=== PATIENT | female | born 1945 | race Caucasian/White ===

== ENCOUNTER 2016-11-09 07:30 | Outpatient (RCR) | payer MEDICARE, BC ==
[2009-02-24 19:52] VITALS: BP 130/60
[2016-11-09] VITALS (9 sets, daily range): BP systolic 91–149; BP diastolic 42–78; PULSE 74–85; TEMP 97.6–98.4
[~2016-11-09] VITALS: Ht 160 cm; Wt 77.3 kg
[~2016-11-09 07:30] MED LIST: ACIDOPHILUS PO; ASPIR-LOW81 MG PO; ASPIRIN 32325 MG/TAB PO; ASPIRIN E.C. 8181 MG PO; BRILINTA90 MG PO; CARTIA XT240 MG PO; CELEXA40 MG PO; CLOBETASOL PROP0.055 TP; CLOTRIMAZOLE1% TP; COLACE 100100 MG/CAP PO; COLACE100 MG PO; CRESTOR20 MG PO; CYANOCOBAL1000 MCG/1 IM; DILAUDID 2MG TAB2 MG PO; DOMPERIDONE10 MG/CAP PO; EFFIENT10 MG PO; ENABLEX7.5 MG PO; FOLIC ACID 40400 MCG PO; FOLIC ACID1 MG PO; FORTAMET500 MG PO; GLIPIZIDE XL10 MG PO; GLUCOPHAGE1000 MG PO; IBUPROFEN800 MG PO; IMDUR 30MG30 MG/TAB; IMDUR30 MG PO; INTRATHECAL PUMP IT; ISOSORBIDE30 MG PO; LANTUS100 U/ML SQ; LASIX 20MG TABL20 MG PO; LASIX 40MG TABL40 MG PO; LEVAQUIN 5500 MG/TA1 PO; LEVEMIR SQ; LEVEMIR100 U/ML SQ; LEVOTHYROXIN0.088 MG PO; LEXAPRO20 MG PO; LISINOPRIL10 MG PO; LOPRESSOR PO; LORTAB 5/500 501 TAB PO; LOTRIMIN1% TP; MAG-OX 400400 MG/TAB PO; METFORMIN1000 MG PO; METOPROLOL SUCC25 M1 PO; METOPROLOL25 MG PO; NEURONTIN300 MG/CAP PO; NITROGLYCERIN0.4 MG SL; NITROSTAT0.4 MG/TAB SL; NORCO 325 MG-101 TAB PO; NORCO 325 MG-7.1 TAB PO; NORCO PO; NORVASC2.5 MG PO; NOVOLOG FLEX100 U/ML SQ; NOVOLOG100 U/ML SQ; PHENERGAN 25 TA25 MG PO; PLAVIX 75MG TAB75 MG PO; PRAVACHOL 40MG40 MG PO; PREVACID 15MG15 MG PO; PROTONIX 40MG T40 MG PO; PROTONIX40 MG PO; RANEXA 500MG T500 MG PO; SEE INSTRUCTIONS IT; SENOKOT S 50 MG1 TAB PO; SEPTRA DS 8001 TAB PO; SINGULAIR10 MG PO; SYNTHROID0.088 MG PO; SYNTHROID0.1 MG/TAB PO; TEMOVATE0.052 TP; THEO-DUR 2200 MG/TAB PO; TOPROL XL 25MG25 MG PO; TYLENOL 325MG325 MG PO; VALISONE 0.1% TP; VITAMIN D 50,1.25 MG PO; VITAMIN D5000 IU PO; VITAMIN E1000 U/CAP PO; VITAMIN E200 I1 PO; ZESTRIL2.5 MG PO; ZOCOR 20MG20 MG PO; ZOCOR40 MG PO; ZOFRAN 4MG T4 MG/TAB PO; [UNRECOGNIZED DRUG - OTHER]; novolog SQ
== END 2016-11-09 12:55 | disposition home or self-care (01) ==
LOC: EUO 07:30
DX: K92.2 Gastrointestinal hemorrhage, unspecified (principal); I25.10 Atherosclerotic heart disease of native coronary artery without angina pectoris; D64.89 Other specified anemias; Z45.2 Encounter for adjustment and management of vascular access device
CPT/HCPCS: J1644; J1940; J7050; P9016

== ENCOUNTER 2016-11-25 12:08 | Outpatient (RCR) | payer MEDICARE, BC ==
[2009-02-24 19:52] VITALS: BP 130/60
[2016-11-24 16:58] LABS: HEMATOCRIT 32.8 % (37.0-47.0); HEMOGLOBIN 10.8 g/dl (12.5-16.0)
[~2016-11-25] VITALS: Ht 160 cm; Wt 77.2 kg
[2016-11-25 12:19] VITALS: BP 97/37; PULSE 81; TEMP 98.3
[2016-11-25 12:34] VITALS: BP 103/51; PULSE 81; TEMP 98.1
[2016-11-25 13:04] VITALS: BP 102/51; PULSE 82; TEMP 98
[2016-11-25 14:04] VITALS: BP 126/65; PULSE 78; TEMP 98.1
== END 2017-02-23 | disposition home or self-care (01) ==
LOC: EUO
PROVIDERS: Internal Medicine
DX: I25.118 Atherosclerotic heart disease of native coronary artery with other forms of angina pectoris (principal); K31.811 Angiodysplasia of stomach and duodenum with bleeding; R07.9 Chest pain, unspecified; I10 Essential (primary) hypertension; Z45.2 Encounter for adjustment and management of vascular access device; Z95.1 Presence of aortocoronary bypass graft; Z87.891 Personal history of nicotine dependence
CPT/HCPCS: J1644; J7050; P9016

== ENCOUNTER 2017-06-23 09:34 | Outpatient (RCR) | payer MEDICARE, BC ==
[2009-02-24 19:52] VITALS: BP 130/60
[2017-06-23] VITALS (9 sets, daily range): BP systolic 101–159; BP diastolic 60–95; PULSE 68–77; TEMP 98.1–99
[2017-06-23] MEDS ORDERED: RANEXA1000 MG PO (11:12)
== END 2017-06-23 18:36 | disposition home or self-care (01) ==
LOC: EUO 09:34
DX: I25.709 Atherosclerosis of coronary artery bypass graft(s), unspecified, with unspecified angina pectoris (principal); K31.811 Angiodysplasia of stomach and duodenum with bleeding
CPT/HCPCS: J1644; J1940; J7050; P9016

== ENCOUNTER 2018-05-06 09:30 | Outpatient (RCR) | payer MEDICARE, BC ==
[2009-02-24 19:52] VITALS: BP 130/60
[2018-05-06] VITALS (11 sets, daily range): BP systolic 115–130; BP diastolic 57–87; PULSE 69–84; TEMP 97.3–98.3
[~2018-05-06 09:30] MED LIST changes: +RANEXA1000 MG PO
== END 2018-05-06 18:00 | disposition home or self-care (01) ==
LOC: EUO 09:30
DX: D64.89 Other specified anemias (principal); I25.9 Chronic ischemic heart disease, unspecified
CPT/HCPCS: J1644; J1940; J7050; P9016

== ENCOUNTER 2018-05-26 00:57 | Inpatient (IN) | payer MEDICARE, BC ==
[~2018-05-26] VITALS: Ht 160 cm; Wt 89.6 kg
[2018-05-26] MEDS ORDERED: LIPITOR 80MG80 MG PO (01:31)
[2018-05-26] MEDS ORDERED: CELEXA40 MG PO (01:31)
[2018-05-26 01:59] LABS: BASO % 0.4 % (0.0-2.0); EOS # 0.3 (0.0-0.7); EOS % 3.6 % (0-4.0); GRAN # 5.6 (1.4-6.5); GRAN % 71.3 % (42.2-75.2); HEMOGLOBIN 10.7 g/dl (12.5-16.0); LYMPH # 1.2 (1.2-3.4); LYMPH % 15.6 % (20.0-51.0); MEAN CELL VOLUME 88 fl (80.0-100.0); MEAN CORPUSCULAR HEMOGLOBIN 29 pg (27.0-31.0); MEAN CORPUSCULAR HGB CONC 32 g/dl (33.0-37.0); MEAN PLATELET VOLUME 9.6 fl (7.4-10.4); MONO # 0.7 (0.1-0.6); MONO % 8.8 % (1.7-9.3); PLATELET COUNT 222 K/mm3 (130-400); RED BLOOD COUNT 3.76 M/mm3 (4.10-5.30)
[2018-05-26 02:06] LABS: PROTHROMBIN TIME 11.6 SECONDS (9.7-12.8)
[2018-05-26 02:11] LABS: ALANINE AMINOTRANSFERASE 38 U/L (9-52); ALBUMIN 3.8 gm/dL (3.5-5.0); ALKALINE PHOSPHATASE 80 U/L (50-136); ANION GAP 9 mmol/L (7-16); AST,SGOT 30 U/L (15-37); BILIRUBIN,TOTAL 0.3 mg/dL (0.0-1.0); BLOOD UREA NITROGEN 18 mg/dL (7-17); CALCIUM 8.9 mg/dL (8.4-10.2); CARBON DIOXIDE 30 mmol/L (22-30); CHLORIDE 99 mmol/L (98-107); CREATININE, serum 1.13 mg/dL (0.52-1.25); GLUCOSE 160 mg/dL (74-106); POTASSIUM 4.3 mmol/L (3.4-5.0); SODIUM 138 mmol/L (137-145); TOTAL PROTEIN 6.6 gm/dL (6.4-8.2)
[2018-05-26 02:23] LABS: TROPONIN-I < 0.012 ng/mL (0.000-0.034)
[2018-05-26] MEDS ORDERED: PHENERGAN 25 TA25 MG PO (03:01)
[2018-05-26] MEDS ORDERED: MUCINEX 60600 MG/TA1 PO (03:01)
[2018-05-26 05:27] LABS: MUCOUS Present /lpf; PH 5 (5-8); SQUAMOUS EPITHELIAL 0-2 /hpf; URINE APPEARANCE Clear; URINE BACTERIA None Seen /hpf; URINE BILIRUBIN Negative (NEGATIVE); URINE BLOOD Negative (NEGATIVE); URINE COLOR Amber; URINE GLUCOSE Negative (NEGATIVE); URINE KETONE Negative (NEGATIVE); URINE LEUKOCYTE ESTERASE Negative (NEGATIVE); URINE NITRATE Negative (NEGATIVE); URINE PROTEIN(semi-quant) Negative (NEGATIVE); URINE RBC 0-2 /hpf; URINE UROBILINOGEN Negative (NEGATIVE)
[2018-05-26 05:49] LABS: COLLECTION METHOD CLEAN CATCH
[2018-05-26 08:14] VITALS: BP 109/65; PULSE 87; TEMP 98.1
[2018-05-26] MEDS ORDERED: GLUCOPHAGE1000 MG PO (10:41)
[2018-05-26 12:26] VITALS: BP 110/66; PULSE 80; TEMP 98.4
[2018-05-26 15:49] VITALS: BP 102/57; PULSE 70; TEMP 98.2
[2018-05-26 20:28] VITALS: BP 113/70; PULSE 83; TEMP 97.8
[2018-05-27 00:35] VITALS: BP 106/62; PULSE 70; TEMP 98.2
[2018-05-27 07:06] LABS: BASO % 0.2 % (0.0-2.0); EOS # 0.3 (0.0-0.7); EOS % 3.9 % (0-4.0); GRAN # 5.8 (1.4-6.5); GRAN % 68.4 % (42.2-75.2); HEMOGLOBIN 10.2 g/dl (12.5-16.0); LYMPH # 1.4 (1.2-3.4); MEAN CELL VOLUME 91 fl (80.0-100.0); MEAN CORPUSCULAR HEMOGLOBIN 29 pg (27.0-31.0); MEAN CORPUSCULAR HGB CONC 32 g/dl (33.0-37.0); MEAN PLATELET VOLUME 10.4 fl (7.4-10.4); MONO # 0.9 (0.1-0.6); MONO % 11.1 % (1.7-9.3); PLATELET COUNT 232 K/mm3 (130-400); RED BLOOD COUNT 3.58 M/mm3 (4.10-5.30); REDCELL DISTRIBUTION WIDTH-CV 14.5 % (11.5-14.5)
[2018-05-27 07:22] LABS: CREATININE, serum 2.05 mg/dL (0.52-1.25); POTASSIUM 4.5 mmol/L (3.4-5.0)
[2018-05-27 07:27] LABS: HEMATOCRIT 32.4 % (37.0-47.0)
[2018-05-27 08:23] VITALS: BP 109/63; BP 112/77; PULSE 100; PULSE 78; TEMP 98.4
[2018-05-27 12:41] VITALS: BP 117/73; PULSE 80; TEMP 98.6
[2018-05-27 16:23] VITALS: BP 111/89; PULSE 85; TEMP 98.4
[2018-05-27 19:44] VITALS: BP 108/91; PULSE 91; TEMP 98.1
[2018-05-28] VITALS (7 sets, daily range): BP systolic 102–143; BP diastolic 55–87; PULSE 67–96; TEMP 98–98.5
[2018-05-28 07:16] LABS: CALCIUM 8.9 mg/dL (8.4-10.2); CREATININE, serum 1.39 mg/dL (0.52-1.25); MAGNESIUM 1.4 mg/dL (1.6-2.3); POTASSIUM 4.4 mmol/L (3.4-5.0)
[2018-05-29 04:27] VITALS: BP 123/57; PULSE 81; TEMP 98.1
[2018-05-29 07:15] VITALS: BP 97/57; PULSE 69; TEMP 97.8
[2018-05-29 07:37] LABS: CALCIUM 9.2 mg/dL (8.4-10.2); CREATININE, serum 1.11 mg/dL (0.52-1.25); MAGNESIUM 2.1 mg/dL (1.6-2.3); POTASSIUM 4.1 mmol/L (3.4-5.0)
[2018-05-29] MEDS ORDERED: OMNICEF 300MG300 MG PO (09:42)
[2018-05-29] MEDS ORDERED: IPRATROPIUM BROM3 M1 IH ×2 (09:45→09:46)
[2018-05-29] MEDS ORDERED: TYLENOL 325MG325 MG PO (09:47)
[2018-05-29] MEDS ORDERED: NEURONTIN300 MG/CAP PO (09:47)
[2018-05-29] MEDS ORDERED: NORCO 325 MG-51 TAB PO (09:48)
[2018-05-29] MEDS ORDERED: PREDNISONE20 MG PO (09:53)
[2018-05-29 11:19] VITALS: BP 143/64; PULSE 86; TEMP 99
[2018-05-29 13:56] VITALS: BP 143/64; PULSE 86; TEMP 99
== END 2018-05-29 15:26 | DRG 555 ==
LOC: COL.ER 00:57 → MEDICAL 06:04
PROVIDERS: Emergency Medicine; Internal Medicine; Physician Assistant
DX: M79.652 Pain in left thigh (principal); J18.9 Pneumonia, unspecified organism; K86.1 Other chronic pancreatitis; F11.20 Opioid dependence, uncomplicated; N17.9 Acute kidney failure, unspecified; G89.29 Other chronic pain; D86.0 Sarcoidosis of lung; I25.10 Atherosclerotic heart disease of native coronary artery without angina pectoris; I10 Essential (primary) hypertension; E11.9 Type 2 diabetes mellitus without complications; Z95.5 Presence of coronary angioplasty implant and graft; Z87.891 Personal history of nicotine dependence; D50.0 Iron deficiency anemia secondary to blood loss (chronic); Z79.4 Long term (current) use of insulin
CPT/HCPCS: 99222-AI; 99232-AI; 99233-AI; 99239; A9284; G8978-GP; G8979-GP; G8987-GO; G8988-GO; J0696; J1170; J1644; J1650; J1815; J2405; J2550; J3475; J7030; J7512; Q9967

== ENCOUNTER 2018-07-12 11:00 | Outpatient (RCR) | payer MEDICARE, BC ==
[2009-02-24 19:52] VITALS: BP 130/60
[~2018-07-12] VITALS: Ht 160 cm; Wt 87.0 kg
[2018-07-12] VITALS (9 sets, daily range): BP systolic 109–151; BP diastolic 35–90; PULSE 78–93; TEMP 98–98.7
[~2018-07-12 11:00] MED LIST changes: +IPRATROPIUM BROM3 M1 IH; +LIPITOR 80MG80 MG PO; +MUCINEX 60600 MG/TA1 PO; +NORCO 325 MG-51 TAB PO; +OMNICEF 300MG300 MG PO; +PREDNISONE20 MG PO
== END 2018-07-12 16:47 | disposition home or self-care (01) ==
LOC: EUO 11:00
DX: D50.0 Iron deficiency anemia secondary to blood loss (chronic) (principal); K31.811 Angiodysplasia of stomach and duodenum with bleeding; Z45.2 Encounter for adjustment and management of vascular access device; Z95.828 Presence of other vascular implants and grafts
CPT/HCPCS: J1644; J1940; J7050; P9016

== ENCOUNTER 2018-08-01 13:15 | Emergency (ER) | payer MEDICARE, BC ==
[2009-02-24 19:52] VITALS: BP 130/60
[~2018-08-01] VITALS: Ht 160 cm; Wt 90.0 kg
[2018-08-01 13:16] VITALS: TEMP 98.2
[2018-08-01 14:25] LABS: BASO % 0.5 % (0.0-2.0); EOS # 0.2 (0.0-0.7); EOS % 3.7 % (0-4.0); GRAN # 4.1 (1.4-6.5); LYMPH # 1.5 (1.2-3.4); LYMPH % 22.9 % (20.0-51.0); MEAN CELL VOLUME 88 fl (80.0-100.0); MEAN CORPUSCULAR HGB CONC 33 g/dl (33.0-37.0); MEAN PLATELET VOLUME 9.8 fl (7.4-10.4); MONO # 0.7 (0.1-0.6); MONO % 10.4 % (1.7-9.3); PLATELET COUNT 217 K/mm3 (130-400); RED BLOOD COUNT 3.38 M/mm3 (4.10-5.30)
[2018-08-01 14:27] LABS: HEMATOCRIT 29.6 % (37.0-47.0); HEMOGLOBIN 9.7 g/dl (12.5-16.0); MEAN CORPUSCULAR HEMOGLOBIN 29 pg (27.0-31.0)
[2018-08-01 14:38] LABS: ALANINE AMINOTRANSFERASE 32 U/L (9-52); ALBUMIN 3.5 gm/dL (3.5-5.0); ALKALINE PHOSPHATASE 61 U/L (50-136); ANION GAP 5 mmol/L (7-16); AST,SGOT 35 U/L (15-37); BILIRUBIN,TOTAL 0.4 mg/dL (0.0-1.0); BLOOD UREA NITROGEN 20 mg/dL (7-17); CALCIUM 8.9 mg/dL (8.4-10.2); CARBON DIOXIDE 32 mmol/L (22-30); CHLORIDE 98 mmol/L (98-107); CREATININE, serum 1.09 mg/dL (0.52-1.25); GLUCOSE 77 mg/dL (74-106); POTASSIUM 4.1 mmol/L (3.4-5.0); SODIUM 135 mmol/L (137-145); TOTAL PROTEIN 6.3 gm/dL (6.4-8.2)
[2018-08-01 14:47] LABS: INR 1.1 (0.8-3.0); PROTHROMBIN TIME 12.7 SECONDS (9.7-12.8)
[2018-08-01 14:53] LABS: TROPONIN-I < 0.012 ng/mL (0.000-0.034)
[2018-08-01 15:12] LABS: COLLECTION METHOD CLEAN CATCH
[2018-08-01 15:17] LABS: MUCOUS Present /lpf; PH 5 (5-8); SQUAMOUS EPITHELIAL 0-2 /hpf; URINE APPEARANCE Clear; URINE BACTERIA Rare /hpf; URINE BILIRUBIN Negative (NEGATIVE); URINE BLOOD Negative (NEGATIVE); URINE COLOR Amber; URINE GLUCOSE Negative (NEGATIVE); URINE KETONE Negative (NEGATIVE); URINE LEUKOCYTE ESTERASE Negative (NEGATIVE); URINE NITRATE Negative (NEGATIVE); URINE PROTEIN(semi-quant) Negative (NEGATIVE); URINE RBC 0-2 /hpf; URINE UROBILINOGEN Negative (NEGATIVE)
[2018-08-01] MEDS ORDERED: CEPHALEXIN500 M1 PO (15:26)
[2018-08-01 15:37] VITALS: BP 129/60; PULSE 78
== END 2018-08-01 15:38 | disposition home or self-care (01) ==
LOC: COL.ER 13:15
PROVIDERS: Emergency Medicine
DX: G45.9 Transient cerebral ischemic attack, unspecified (principal); I10 Essential (primary) hypertension; E11.9 Type 2 diabetes mellitus without complications; I25.10 Atherosclerotic heart disease of native coronary artery without angina pectoris; Z95.5 Presence of coronary angioplasty implant and graft; Z79.82 Long term (current) use of aspirin; Z79.4 Long term (current) use of insulin

== ENCOUNTER → 2018-08-09 | Outpatient (CLI) | payer MEDICARE, BC ==
[~2018-08-09] MED LIST changes: +CEPHALEXIN500 M1 PO
== END ==
LOC: COL.CARD 10:46
DX: I77.1 Stricture of artery (principal)
CPT/HCPCS: Q9967

== ENCOUNTER 2018-10-03 10:09 | Outpatient (CLI) | payer MEDICARE, BC ==
[2009-02-24 19:52] VITALS: BP 130/60
[~2018-10-03] VITALS: Ht 160 cm; Wt 85.0 kg
[~2018-10-03 10:09] MED LIST changes: +ASPI325T6 PO
[2018-10-03 10:31] VITALS: BP 114/58; PULSE 82; TEMP 98.3
[2018-10-03 13:29] VITALS: BP 123/56; PULSE 85; TEMP 98.2
== END 2018-10-03 13:51 | disposition home or self-care (01) ==
LOC: EUO 10:09
DX: E83.42 Hypomagnesemia (principal)
CPT/HCPCS: J1644; J3475

== ENCOUNTER 2018-11-13 12:09 | Emergency (ER) | payer MEDICARE, BC ==
[2009-02-24 19:52] VITALS: BP 130/60
[~2018-11-13] VITALS: Ht 160 cm; Wt 85.0 kg
[2018-11-13] MEDS ORDERED: CYANOCOBAL1000 MCG/1 IM (12:35)
[2018-11-13] MEDS ORDERED: NORCO 325 MG-7.1 TAB PO ×2 (12:36→14:35)
[2018-11-13] MEDS ORDERED: LASIX 20MG TABL20 MG PO (12:36)
[2018-11-13] MEDS ORDERED: SYNTHROID0.075 MG/T PO (12:38)
[2018-11-13 13:20] LABS: BASO % 0.4 % (0.0-2.0); EOS # 0.3 (0.0-0.7); EOS % 4.7 % (0-4.0); GRAN % 71.8 % (42.2-75.2); LYMPH % 13.8 % (20.0-51.0); MEAN CELL VOLUME 92 fl (80.0-100.0); MEAN CORPUSCULAR HGB CONC 34 g/dl (33.0-37.0); MEAN PLATELET VOLUME 9.9 fl (7.4-10.4); MONO # 0.6 (0.1-0.6); PLATELET COUNT 196 K/mm3 (130-400); RED BLOOD COUNT 3.09 M/mm3 (4.10-5.30); REDCELL DISTRIBUTION WIDTH-CV 13.2 % (11.5-14.5)
[2018-11-13 13:21] LABS: HEMATOCRIT 28.3 % (37.0-47.0); HEMOGLOBIN 9.5 g/dl (12.5-16.0); MEAN CORPUSCULAR HEMOGLOBIN 31 pg (27.0-31.0)
[2018-11-13 13:34] LABS: ALANINE AMINOTRANSFERASE 23 U/L (9-52); ALBUMIN 3.5 gm/dL (3.5-5.0); ALKALINE PHOSPHATASE 57 U/L (50-136); ANION GAP 4 mmol/L (7-16); AST,SGOT 24 U/L (15-37); BILIRUBIN,TOTAL 0.4 mg/dL (0.0-1.0); BLOOD UREA NITROGEN 20 mg/dL (7-17); C-REACTIVE PROTEIN 0.6 mg/dL (0.0-0.9); CALCIUM 8.8 mg/dL (8.4-10.2); CARBON DIOXIDE 33 mmol/L (22-30); CHLORIDE 98 mmol/L (98-107); CREATININE, serum 1.09 mg/dL (0.52-1.25); GLUCOSE 96 mg/dL (74-106); LIPASE 95 U/L (23-300); POTASSIUM 4.1 mmol/L (3.4-5.0); SODIUM 135 mmol/L (137-145); TOTAL PROTEIN 6.4 gm/dL (6.4-8.2)
[2018-11-13 13:49] LABS: TROPONIN-I < 0.012 ng/mL (0.000-0.034)
[2018-11-13 14:16] LABS: COLLECTION METHOD CLEAN CATCH
[2018-11-13 14:23] LABS: MUCOUS Present /lpf; PH 5 (5-8); SQUAMOUS EPITHELIAL 0-2 /hpf; URINE APPEARANCE Clear; URINE BACTERIA None Seen /hpf; URINE BILIRUBIN Negative (NEGATIVE); URINE BLOOD Negative (NEGATIVE); URINE COLOR Amber; URINE GLUCOSE Negative (NEGATIVE); URINE KETONE Negative (NEGATIVE); URINE LEUKOCYTE ESTERASE Trace (NEGATIVE); URINE NITRATE Negative (NEGATIVE); URINE PROTEIN(semi-quant) Negative (NEGATIVE); URINE RBC 0-2 /hpf; URINE UROBILINOGEN Negative (NEGATIVE)
[2018-11-13] MEDS ORDERED: ZOFRAN ODT4 MG PO (14:35)
[2018-11-13] MEDS ORDERED: CEFTIN 250250 MG/TAB PO (14:35)
[2018-11-13 15:08] VITALS: BP 121/68; PULSE 84; TEMP 97.7
== END 2018-11-13 15:24 | disposition home or self-care (01) ==
LOC: COL.ER 12:09
PROVIDERS: Physician Assistant
DX: R10.12 Left upper quadrant pain (principal); E11.9 Type 2 diabetes mellitus without complications; I10 Essential (primary) hypertension; I25.10 Atherosclerotic heart disease of native coronary artery without angina pectoris; J44.9 Chronic obstructive pulmonary disease, unspecified; E78.5 Hyperlipidemia, unspecified; E03.9 Hypothyroidism, unspecified; Z90.710 Acquired absence of both cervix and uterus; Z79.4 Long term (current) use of insulin; Z90.49 Acquired absence of other specified parts of digestive tract; Z98.890 Other specified postprocedural states; Z87.19 Personal history of other diseases of the digestive system; Z95.5 Presence of coronary angioplasty implant and graft
CPT/HCPCS: J1170; J2405; J3475; J7030

== ENCOUNTER 2018-11-14 10:01 | Outpatient (RCR) | payer MEDICARE, BC ==
[2009-02-24 19:52] VITALS: BP 130/60
[2018-11-14] VITALS (9 sets, daily range): BP systolic 119–157; BP diastolic 57–90; PULSE 80–91; TEMP 97.6–98.2
[~2018-11-14 10:01] MED LIST changes: +CEFTIN 250250 MG/TAB PO; +SYNTHROID0.075 MG/T PO; +ZOFRAN ODT4 MG PO
== END 2018-11-14 16:10 | disposition home or self-care (01) ==
LOC: EUO 10:01
DX: Z86.2 Personal history of diseases of the blood and blood-forming organs and certain disorders involving the immune mechanism (principal)
CPT/HCPCS: J1644; J7050; P9016

== ENCOUNTER 2018-11-30 12:32 | Emergency (ER) | payer MEDICARE, BC ==
[2009-02-24 19:52] VITALS: BP 130/60
[~2018-11-30] VITALS: Ht 160 cm; Wt 81.8 kg
[2018-11-30 12:41] VITALS: TEMP 97.8
[2018-11-30 13:41] LABS: BASO % 0.4 % (0.0-2.0); EOS # 0.3 (0.0-0.7); EOS % 3.7 % (0-4.0); GRAN % 75.6 % (42.2-75.2); HEMATOCRIT 37.1 % (37.0-47.0); HEMOGLOBIN 12.6 g/dl (12.5-16.0); LYMPH # 1.1 (1.2-3.4); LYMPH % 11.7 % (20.0-51.0); MEAN CELL VOLUME 90 fl (80.0-100.0); MEAN CORPUSCULAR HEMOGLOBIN 31 pg (27.0-31.0); MEAN CORPUSCULAR HGB CONC 34 g/dl (33.0-37.0); MEAN PLATELET VOLUME 10.1 fl (7.4-10.4); MONO # 0.8 (0.1-0.6); MONO % 8.1 % (1.7-9.3); PLATELET COUNT 273 K/mm3 (130-400); RED BLOOD COUNT 4.13 M/mm3 (4.10-5.30); REDCELL DISTRIBUTION WIDTH-CV 13.2 % (11.5-14.5)
[2018-11-30 13:48] LABS: ALANINE AMINOTRANSFERASE 28 U/L (9-52); ALBUMIN 3.9 gm/dL (3.5-5.0); ALKALINE PHOSPHATASE 81 U/L (50-136); AMYLASE 118 U/L (30-110); ANION GAP 7 mmol/L (7-16); AST,SGOT 25 U/L (15-37); BILIRUBIN,TOTAL 0.4 mg/dL (0.0-1.0); BLOOD UREA NITROGEN 19 mg/dL (7-17); CALCIUM 10.1 mg/dL (8.4-10.2); CARBON DIOXIDE 30 mmol/L (22-30); CHLORIDE 100 mmol/L (98-107); CREATININE, serum 1.06 mg/dL (0.52-1.25); GLUCOSE 128 mg/dL (74-106); LIPASE 177 U/L (23-300); MAGNESIUM 1.3 mg/dL (1.6-2.3); POTASSIUM 4.3 mmol/L (3.4-5.0); SODIUM 136 mmol/L (137-145); TOTAL PROTEIN 7.2 gm/dL (6.4-8.2)
[2018-11-30 14:03] LABS: TROPONIN-I < 0.012 ng/mL (0.000-0.035)
[2018-11-30] MEDS ORDERED: VITAMIN B11000 MCG/M IM (14:05)
[2018-11-30] MEDS ORDERED: NORCO 325 MG-101 TAB PO (14:07)
[2018-11-30] MEDS ORDERED: LEVEMIR FLEX100 U/ML SQ (14:08)
[2018-11-30] MEDS ORDERED: RANEXA1000 MG PO (14:11)
[2018-11-30] MEDS ORDERED: D3-5050000 IU PO (14:13)
[2018-11-30 14:48] LABS: COLLECTION METHOD CLEAN CATCH
[2018-11-30 14:57] LABS: MUCOUS Present /lpf; PH 5 (5-8); SQUAMOUS EPITHELIAL 0-2 /hpf; URINE APPEARANCE Clear; URINE BACTERIA None Seen /hpf; URINE BILIRUBIN Negative (NEGATIVE); URINE BLOOD Negative (NEGATIVE); URINE COLOR Yellow; URINE GLUCOSE 1+ (NEGATIVE); URINE KETONE Negative (NEGATIVE); URINE LEUKOCYTE ESTERASE Negative (NEGATIVE); URINE NITRATE Negative (NEGATIVE); URINE PROTEIN(semi-quant) Negative (NEGATIVE); URINE RBC None Seen /hpf; URINE UROBILINOGEN Negative (NEGATIVE)
[2018-11-30] MEDS ORDERED: PROMETHAZINE12.5 M5 PO (16:54)
[2018-11-30 17:25] VITALS: BP 107/56; PULSE 85
== END 2018-11-30 17:28 | disposition home or self-care (01) ==
LOC: COL.ER 12:32
PROVIDERS: Emergency Medicine
DX: R11.2 Nausea with vomiting, unspecified (principal); I25.10 Atherosclerotic heart disease of native coronary artery without angina pectoris; E11.9 Type 2 diabetes mellitus without complications; I10 Essential (primary) hypertension; K86.1 Other chronic pancreatitis; K86.81 Exocrine pancreatic insufficiency; Z79.4 Long term (current) use of insulin; Z79.82 Long term (current) use of aspirin; Z86.73 Personal history of transient ischemic attack (TIA), and cerebral infarction without residual deficits; Z90.49 Acquired absence of other specified parts of digestive tract; Z90.710 Acquired absence of both cervix and uterus
CPT/HCPCS: J1644; J2405; J3475; J7050; Q9967

== ENCOUNTER 2018-12-20 07:22 | Outpatient (RCR) | payer MEDICARE, BC ==
[2009-02-24 19:52] VITALS: BP 130/60
[2018-12-20] VITALS (9 sets, daily range): BP systolic 115–152; BP diastolic 57–79; PULSE 78–91; TEMP 97.7–98.2
[~2018-12-20] VITALS: Ht 160 cm; Wt 86.0 kg
[~2018-12-20 07:22] MED LIST changes: +D3-5050000 IU PO; +LEVEMIR FLEX100 U/ML SQ; +PROMETHAZINE12.5 M5 PO; +VITAMIN B11000 MCG/M IM
[2018-12-20] MEDS ORDERED: SLOW-MAG71.5 MG PO (09:41)
--- NOTE | 2018-12-20 15:17 | NUR ---
Pt ember blood tx well. Pt discharged per scooter to meet daughter.
== END 2018-12-20 15:18 | disposition home or self-care (01) ==
LOC: EUO 07:22
DX: D50.0 Iron deficiency anemia secondary to blood loss (chronic) (principal)
CPT/HCPCS: J1644; J7050; P9016

== ENCOUNTER 2019-02-21 10:00 | Outpatient (RCR) | payer MEDICARE, BC ==
[2009-02-24 19:52] VITALS: BP 130/60
[~2019-02-21] VITALS: Ht 160 cm; Wt 85.1 kg
[2019-02-21] VITALS (11 sets, daily range): BP systolic 112–140; BP diastolic 38–89; PULSE 70–84; TEMP 97.2–98.6
[~2019-02-21 10:00] MED LIST changes: +SLOW-MAG71.5 MG PO
--- NOTE | 2019-02-21 11:15 | NUR ---
Warm blanket provided. Meal offered and refused
--- NOTE | 2019-02-21 16:00 | NUR ---
MD Louann called: asked if pt requires intra magnesium infusion telemetry, or if pt needs a post magnesium infusion EKG. MD's nurse Maria C asked MD Louann - no telemetry or EKG needed
--- NOTE | 2019-02-21 17:00 | NUR ---
Report received from Natasha Lange.
== END 2019-02-21 17:31 | disposition home or self-care (01) ==
LOC: EUO 10:00
DX: E83.42 Hypomagnesemia (principal); Z86.2 Personal history of diseases of the blood and blood-forming organs and certain disorders involving the immune mechanism
CPT/HCPCS: J1644; J3475; J7050; P9016

== ENCOUNTER 2019-04-27 11:15 | Outpatient (RCR) | payer MEDICARE, BC ==
[2009-02-24 19:52] VITALS: BP 130/60
[~2019-04-27] VITALS: Ht 160 cm; Wt 85.0 kg
[2019-04-27] MEDS ORDERED: ZYRTEC 10MG10 MG PO (12:15)
[2019-04-27 13:13] VITALS: BP 113/75; PULSE 82; TEMP 97.4
[2019-04-27 13:35] VITALS: BP 131/71; PULSE 86; TEMP 97.9
[2019-04-27 13:50] VITALS: BP 134/69; PULSE 74; TEMP 98.2
[2019-04-27 14:20] VITALS: BP 140/79; PULSE 76; TEMP 98.2
[2019-04-27 15:20] VITALS: BP 118/64; PULSE 83; TEMP 98.3
== END 2019-04-27 16:00 | disposition home or self-care (01) ==
LOC: EUO 11:15
DX: D64.9 Anemia, unspecified (principal); I20.9 Angina pectoris, unspecified
CPT/HCPCS: J1644; J7050; P9016

== ENCOUNTER 2019-05-22 07:03 | Day surgery (SDC) | payer MEDICARE, BC ==
[2009-02-24 19:52] VITALS: BP 130/60
[~2019-05-22] VITALS: Ht 160.1 cm; Wt 85.0 kg
[2019-05-22] VITALS (12 sets, daily range): BP systolic 104–144; BP diastolic 55–81; PULSE 72–98; TEMP 98–98.3
[~2019-05-22 07:03] MED LIST changes: +ZYRTEC 10MG10 MG PO
[2019-05-22 07:37] LABS: MEAN CELL VOLUME 96 fl (80.0-100.0); MEAN CORPUSCULAR HEMOGLOBIN 31 pg (27.0-31.0); MEAN CORPUSCULAR HGB CONC 33 g/dl (33.0-37.0); MEAN PLATELET VOLUME 9.6 fl (7.4-10.4); PLATELET COUNT 212 K/mm3 (130-400); RED BLOOD COUNT 3.18 M/mm3 (4.10-5.30); REDCELL DISTRIBUTION WIDTH-CV 12.9 % (11.5-14.5)
[2019-05-22 07:41] LABS: HEMATOCRIT 30.5 % (37.0-47.0)
[2019-05-22 07:46] LABS: INR 1.1 (0.8-3.0); PROTHROMBIN TIME 12.3 SECONDS (9.7-12.8)
[2019-05-22 07:48] LABS: CALCIUM 9.1 mg/dL (8.4-10.2); CREATININE, serum 1.2 (0.52-1.25)
[2019-05-22] MEDS ORDERED: RT ADVAIR HFA 1112 G IH (08:12)
[2019-05-22] MEDS ORDERED: MIDAMOR 5MG TAB5 MG PO (08:13)
[2019-05-22] MEDS ORDERED: BETAMETHASONE VA0.1% TP (08:15)
[2019-05-22] MEDS ORDERED: TEMOVATE0.05% TP (08:16)
[2019-05-22] MEDS ORDERED: LOTRIMIN1% TP (08:17)
[2019-05-22] MEDS ORDERED: SLOW FE142 MG PO (08:59)
[2019-05-22] MEDS ORDERED: VITAMIN C500 MG PO (09:00)
[2019-05-22] MEDS ORDERED: NORCO 325 MG-7.1 TAB PO (09:01)
--- NOTE | 2019-05-22 09:21 | NUR ---
SEE MERGE DOCUMENTATION FOR MEDICATION ADMINISTRATION TIMES AND INTRA/POST PROCEDURE MEDICATION ASSESSMENTS.
[2019-05-22] MEDS ORDERED: NORVASC2.5 MG PO (10:22)
--- NOTE | 2019-05-22 10:30 | NUR ---
Pt returned to EU 12 per bed s/p heart cath. Pt resting well, daughter at bedside.
--- NOTE | 2019-05-22 10:42 | NUR ---
TRANSFER: Pt transferred to express unit at 1040 from laboratory tech. VS monitors attached; VS's WNL. Pt A&O x3, conversing easily with staff and family. Bedside handoff with DARY Self. Right femoral access site assessed; site soft and without bleeding/oozing or brusing. Dressing dry and intact. Distal DP pulse +2. Right radial access attempted during case; puncture site covered with bandaid which is dry and intact. Surrounding tissue soft and without hematoma. No s/sx of impaired perfusion noted. Education provided regarding flat time and s/sx to report to the RN.
--- NOTE | 2019-05-22 13:30 | NUR ---
Pt voided x 1 per bedpan.
--- NOTE | 2019-05-22 14:45 | NUR ---
Pt has ambulated, voided and ember PO intake s n/v.
--- NOTE | 2019-05-22 15:10 | NUR ---
Pt discharged per electric scooter with daughter.
== END 2019-05-22 15:29 | disposition home or self-care (01) ==
LOC: COL.CAR 07:03
PROVIDERS: Internal Medicine Cardiovascular Disease
DX: I25.10 Atherosclerotic heart disease of native coronary artery without angina pectoris (principal); R94.39 Abnormal result of other cardiovascular function study; I77.819 Aortic ectasia, unspecified site; I07.1 Rheumatic tricuspid insufficiency
CPT/HCPCS: J1644; J2250; J2405; Q9967

== ENCOUNTER 2019-07-20 15:26 | Observation (INO) | payer MEDICARE, BC ==
[~2019-07-20] VITALS: Ht 160 cm; Wt 86.0 kg
[~2019-07-20 15:26] MED LIST changes: +BETAMETHASONE VA0.1% TP; +MIDAMOR 5MG TAB5 MG PO; +RT ADVAIR HFA 1112 G IH; +SLOW FE142 MG PO; +TEMOVATE0.05% TP; +VITAMIN C500 MG PO
[2019-07-20 16:05] VITALS: BP 116/77; PULSE 93; TEMP 98.3
[2019-07-20 17:28] LABS: BASO % 0.3 % (0.0-2.0); EOS # 0.2 (0.0-0.7); EOS % 2.5 % (0-4.0); GRAN % 68.6 % (42.2-75.2); LYMPH % 16.6 % (20.0-51.0); MEAN CELL VOLUME 96 fl (80.0-100.0); MEAN CORPUSCULAR HGB CONC 33 g/dl (33.0-37.0); MEAN PLATELET VOLUME 10.4 fl (7.4-10.4); MONO # 0.7 (0.1-0.6); MONO % 11.5 % (1.7-9.3); PLATELET COUNT 187 K/mm3 (130-400); REDCELL DISTRIBUTION WIDTH-CV 13.4 % (11.5-14.5)
[2019-07-20] MEDS ORDERED: RT ADVAIR HFA 2312 G IH (17:32)
[2019-07-20] MEDS ORDERED: FOLIC ACID 11 MG/TA1 PO (17:36)
[2019-07-20] MEDS ORDERED: ASPIRIN E.C. 8181 MG PO (17:37)
[2019-07-20] MEDS ORDERED: MUCINEX 60600 MG/TA1 PO (17:40)
[2019-07-20 17:42] LABS: ALBUMIN 3.9 gm/dL (3.5-5.0); BILIRUBIN,TOTAL 0.5 mg/dL (0.0-1.0); C-REACTIVE PROTEIN 3.9 mg/dL (0.0-0.9); CALCIUM 9.3 mg/dL (8.4-10.2); CREATININE, serum 1.25 (0.52-1.25); MAGNESIUM 1.4 mg/dL (1.6-2.3); POTASSIUM 3.9 mmol/L (3.4-5.0); TOTAL PROTEIN 6.9 gm/dL (6.4-8.2)
[2019-07-20 17:46] LABS: HEMOGLOBIN 9.4 g/dl (12.5-16.0); MEAN CORPUSCULAR HEMOGLOBIN 31 pg (27.0-31.0)
[2019-07-20 17:47] LABS: HEMATOCRIT 28.9 % (37.0-47.0)
[2019-07-20] MEDS ORDERED: LIPITOR 40MG TA40 MG PO (17:52)
[2019-07-20] MEDS ORDERED: SPIRIVA RE2.5 MCG/Ac IH (18:16)
[2019-07-20] MEDS ORDERED: VITAMIN D31000 I1 PO (18:16)
--- NOTE | 2019-07-20 19:14 | NUR ---
Pt arrived direct from physcians office, settled in room, initial assessments complete.
[2019-07-20 19:46] VITALS: BP 115/54; PULSE 87; TEMP 97.8
[2019-07-20 19:54] LABS: ARTERIAL BLD GAS O2 SATURATION 97.6 % (92-100); ARTERIAL BLD GAS TCO2 CT 26.5; ARTERIAL BLOOD GAS BASE EXCESS -0.4 (-2-2); ARTERIAL BLOOD GAS HCO3 25.1 meq/L (22-26); ARTERIAL BLOOD GAS PCO2 44.3 mmHg (35-45); ARTERIAL BLOOD GAS PO2 98.5 mmHg (80-100); ARTERIAL BLOOD GAS pH 7.37 (7.35-7.45)
--- NOTE | 2019-07-20 21:00 | NUR ---
Patient assessed at this time. Alert and oriented x 4, and able to make needs known. Denies having pain and discomfort. Portacath accessed and flushed. On oxygen at 2.5 L/min via NC. Patient does report SOB and dyspnea, worsening with exertion. LS CTA. Respirations even and unlabored. Continues on Droplet precautions. HRR. Capillary refill less than 3 seconds. Non-tenting skin turgor. BSAx4. Abdomen soft and non-tender. 1+ edema BLE. Voices no questions, needs, or concerns at this time. Resting in bed with call light within reach. Call light is within reach.
[2019-07-20 23:15] VITALS: BP 132/86; PULSE 83; TEMP 98.8
[2019-07-21] VITALS (8 sets, daily range): BP systolic 99–114; BP diastolic 35–74; PULSE 86–103; TEMP 98–98.8
--- NOTE | 2019-07-21 05:37 | NUR ---
Patient has denied having pain and discomfort this shift. Denies SOB and dyspnea at rest, but does with exertion. Continues on oxygen at 2.5 L/min via NC. Continues to have occasional dry cough. No sputum production. Continues on droplet precautions related to recent contact with someone who had tested positive for Haemophilus influenza. RVP negative. BS this morning was 311. Patient is on prednisone. Voices no questions, needs, or concerns at this time. Resting in bed watching TV with call light within reach. Has been awake on and off throughout the night.
[2019-07-21 06:26] LABS: BASO % 0.2 % (0.0-2.0); GRAN # 4.8 (1.4-6.5); GRAN % 86.5 % (42.2-75.2); LYMPH # 0.5 (1.2-3.4); LYMPH % 9.7 % (20.0-51.0); MEAN CELL VOLUME 97 fl (80.0-100.0); MEAN CORPUSCULAR HGB CONC 33 g/dl (33.0-37.0); MEAN PLATELET VOLUME 10.9 fl (7.4-10.4); MONO # 0.2 (0.1-0.6); MONO % 2.9 % (1.7-9.3); PLATELET COUNT 182 K/mm3 (130-400); RED BLOOD COUNT 3.05 M/mm3 (4.10-5.30); REDCELL DISTRIBUTION WIDTH-CV 13.4 % (11.5-14.5)
[2019-07-21 06:43] LABS: CALCIUM 9.1 mg/dL (8.4-10.2); CREATININE, serum 1.08 (0.52-1.25); MAGNESIUM 2.2 mg/dL (1.6-2.3); POTASSIUM 5.2 mmol/L (3.4-5.0)
[2019-07-21 07:02] LABS: HEMATOCRIT 29.5 % (37.0-47.0); HEMOGLOBIN 9.6 g/dl (12.5-16.0); MEAN CORPUSCULAR HEMOGLOBIN 31 pg (27.0-31.0)
--- NOTE | 2019-07-21 07:17 | NUR ---
Report given to first shift nurse.
--- NOTE | 2019-07-21 07:32 | NUR ---
REPORT RECEIVED FROM DARY KOEHLER. PT SLEEPING SOUNDLY IN BED. CALL LIGHT IN REACH.
--- NOTE | 2019-07-21 09:25 | NUR ---
PT JUST HAD PT IN BED. PT ALERT AND ORIENTED AND DENIED PAIN. CALL LIGHT IN REACH.
--- NOTE | 2019-07-21 12:17 | NUR ---
Chaplain garcia and offered support with patient.
--- NOTE | 2019-07-21 12:21 | NUR ---
PT C/O PAIN IN HER LEGS AND LOWER BACK AND ASKS PAIN MED. PT REPORTS SHE'S ORDERED LUNCH AND WAITING FOR IT. CALL LIGHT IN REACH.
--- NOTE | 2019-07-21 13:53 | NUR ---
PT RESTING IN BED COMFORTABLY AND REPORTS HER PAIN IS "BETTER." CALL LIGHT IN REACH.
--- NOTE | 2019-07-21 15:30 | NUR ---
PT RESTING IN BED COMFORTABLY AND DENIED PAIN. CALL LIGHT IN REACH.
--- NOTE | 2019-07-21 16:14 | NUR ---
Plan: To return home with daughter Rekha tinsley [phone], who is also the patients emergency contact. Patient reports that her daughter is also listed on her DPOA. Patient resides in [place]. Assess; LINDSEY met with Patient, and she reports that she uses a wheelchair, walker and a nebulizer. Patient also reports that she uses 2 to 2.5 liters of oxygen a day. Patient reports that her PCP is Dr. Wise and she has no follow up appointments at this time. Patient reports that she gets her medications from [facility] with no concerns. Patient has declined [facility]HS at this time. Action: Patient did inquire about assistance with cokking at home, as her daughter takes care of her, works, and takes care of her disabled son.
--- NOTE | 2019-07-21 18:39 | NUR ---
PT'S FAMILY VISITING IN RM AND PT RESTING IN BED. NO CONCERN AT THIS TIME. CALL LIGHT IN REACH.
--- NOTE | 2019-07-21 19:18 | NUR ---
REPORT GIVEN TO DARY SCHROEDER. PT RESTING IN BED COMFORTABLY. CALL LIGHT IN REACH.
[2019-07-22 03:35] VITALS: BP 102/36; PULSE 100; TEMP 98.8
[2019-07-22 06:34] LABS: CALCIUM 9.2 mg/dL (8.4-10.2); CREATININE, serum 1.17 (0.52-1.25)
--- NOTE | 2019-07-22 07:21 | NUR ---
Received report from DARY Aaron.
[2019-07-22 07:53] VITALS: BP 103/48; PULSE 99; TEMP 98.5
--- NOTE | 2019-07-22 08:15 | NUR ---
Pt awake and alert, talkative, no C/O pain at this time, shift assessments complete, left Pt call light in reach, bed in lowest position.
[2019-07-22] MEDS ORDERED: PREDNISONE20 MG PO (10:56)
[2019-07-22] MEDS ORDERED: LEVAQUIN 750MG750 M1 PO (10:57)
--- NOTE | 2019-07-22 15:35 | NUR ---
Pt Discharged to home, escorted to entrance, left facility with family via privat auto.
== END 2019-07-22 15:36 | disposition home or self-care (01) ==
LOC: MEDICAL 15:26
PROVIDERS: Nurse Practitioner Family; ADMIT Hospitalist
DX: R05 Cough (principal); R06.00 Dyspnea, unspecified; Z20.89 Contact with and (suspected) exposure to other communicable diseases; J44.9 Chronic obstructive pulmonary disease, unspecified; D86.89 Sarcoidosis of other sites; D50.0 Iron deficiency anemia secondary to blood loss (chronic); I27.20 Pulmonary hypertension, unspecified; E83.42 Hypomagnesemia; E87.5 Hyperkalemia; I25.10 Atherosclerotic heart disease of native coronary artery without angina pectoris; I25.2 Old myocardial infarction; I10 Essential (primary) hypertension; E11.9 Type 2 diabetes mellitus without complications; K86.1 Other chronic pancreatitis; G89.29 Other chronic pain; E78.5 Hyperlipidemia, unspecified; Z86.73 Personal history of transient ischemic attack (TIA), and cerebral infarction without residual deficits
CPT/HCPCS: G0008; G0378; G0379; J1815; J2920; J3475; J7512

== ENCOUNTER 2019-08-31 14:45 | Outpatient (RCR) | payer MEDICARE, BC ==
[2009-02-24 19:52] VITALS: BP 130/60
[~2019-08-31] VITALS: Ht 160 cm; Wt 88.0 kg
[2019-08-31] VITALS (10 sets, daily range): BP systolic 105–136; BP diastolic 57–96; PULSE 77–91; TEMP 98.1–98.8
[~2019-08-31 14:45] MED LIST changes: +FOLIC ACID 11 MG/TA1 PO; +LEVAQUIN 750MG750 M1 PO; +LIPITOR 40MG TA40 MG PO; +RT ADVAIR HFA 2312 G IH; +SPIRIVA RE2.5 MCG/Ac IH; +VITAMIN D31000 I1 PO
--- NOTE | 2019-08-31 17:10 | NUR ---
Report to Tato Hanley RN who assumed care at this time.
[2019-08-31] MEDS ORDERED: NORVASC2.5 MG PO (17:26)
== END 2019-08-31 21:18 | disposition home or self-care (01) ==
LOC: EUO 14:45
DX: D50.8 Other iron deficiency anemias (principal)
CPT/HCPCS: J1644; J1940; J7050; P9016

== ENCOUNTER 2019-12-26 08:00 | Outpatient (RCR) | payer MEDICARE, BC ==
[2009-02-24 19:52] VITALS: BP 130/60
[~2019-12-26] VITALS: Ht 160 cm; Wt 101.4 kg
[2019-12-26 09:07] VITALS: BP 99/60; PULSE 78; TEMP 989.3
[2019-12-26 09:22] VITALS: BP 108/96; PULSE 76; TEMP 98
[2019-12-26 09:52] VITALS: BP 112/62; BP 125/84; PULSE 75; PULSE 85; TEMP 98
[2019-12-26 10:52] VITALS: BP 138/71; PULSE 74; TEMP 98
[2019-12-26 11:15] VITALS: BP 95/73; PULSE 78; TEMP 97.9
== END 2019-12-26 11:15 | disposition home or self-care (01) ==
LOC: EUO 08:00
DX: D50.8 Other iron deficiency anemias (principal)
CPT/HCPCS: J1644; J7050; P9016

== ENCOUNTER → 2020-03-19 | Outpatient (CLI) | payer MEDICARE, BC ==
[2020-03-19 11:33] LABS: MEAN CELL VOLUME 94 fl (80.0-100.0); MEAN CORPUSCULAR HGB CONC 32 g/dl (33.0-37.0); MEAN PLATELET VOLUME 10.3 fl (7.4-10.4); PLATELET COUNT 239 K/mm3 (130-400); RED BLOOD COUNT 3.07 M/mm3 (4.10-5.30); REDCELL DISTRIBUTION WIDTH-CV 13.7 % (11.5-14.5)
[2020-03-19 11:34] LABS: HEMATOCRIT 28.7 % (37.0-47.0); HEMOGLOBIN 9.1 g/dl (12.5-16.0); MEAN CORPUSCULAR HEMOGLOBIN 30 pg (27.0-31.0)
[2020-03-19 12:12] LABS: BAND 1 % (0-10); EOSINOPHIL 4 % (0-4); LYMPHOCYTE 20 % (20.0-51.0); NEUTROPHILS 70 % (42.0-75.2); PLATELET ESTIMATE NORMAL (NORMAL)
== END | disposition still patient (30) ==
LOC: EDSTATUS 08:15 → COL.LAB 10:43
PROVIDERS: Internal Medicine Medical Oncology
DX: D50.8 Other iron deficiency anemias (principal)

== ENCOUNTER 2020-03-20 07:13 | Outpatient (RCR) | payer MEDICARE, BC ==
[2009-02-24 19:52] VITALS: BP 130/60
[~2020-03-20] VITALS: Ht 160 cm; Wt 87.0 kg
[2020-03-20 09:40] VITALS: BP 111/67; PULSE 86; TEMP 98.2
[2020-03-20 09:58] VITALS: BP 117/58; PULSE 88; TEMP 98
[2020-03-20 10:25] VITALS: BP 121/87; PULSE 80; TEMP 98.4
[2020-03-20 10:40] VITALS: BP 124/66; PULSE 85; TEMP 98.2
[2020-03-20 11:40] VITALS: BP 109/58; PULSE 82; TEMP 98.2
[2020-03-20 12:29] VITALS: BP 134/76; PULSE 86; TEMP 98.2
== END 2020-03-24 17:39 | disposition still patient (30) ==
LOC: EUO 07:13
DX: D50.8 Other iron deficiency anemias (principal); R07.9 Chest pain, unspecified
CPT/HCPCS: J1644; J7050; P9016

== ENCOUNTER → 2020-04-29 | Outpatient (CLI) | payer MEDICARE, BC | LOC: COL.VAS 09:19 | DX: I27.20 Pulmonary hypertension, unspecified (principal); I35.0 Nonrheumatic aortic (valve) stenosis ==

== ENCOUNTER 2020-07-09 08:00 | Outpatient (RCR) | payer MEDICARE, BC ==
[2009-02-24 19:52] VITALS: BP 130/60
[~2020-07-09] VITALS: Ht 160 cm; Wt 85.0 kg
[~2020-07-09 08:00] MED LIST changes: -SYNTHROID0.075 MG/T PO
[2020-07-09 08:50] VITALS: BP 115/55; PULSE 92; TEMP 98.6
[2020-07-09 09:06] VITALS: BP 97/57; PULSE 94; TEMP 99.3
[2020-07-09 09:21] VITALS: BP 100/61; PULSE 90; TEMP 98.1
[2020-07-09 09:51] VITALS: BP 119/61; PULSE 90; TEMP 98.1
[2020-07-09 10:51] VITALS: BP 115/55; PULSE 86; TEMP 97.8
== END 2020-07-09 11:27 | disposition home or self-care (01) ==
LOC: EUO 08:00
DX: D64.9 Anemia, unspecified (principal); Z95.9 Presence of cardiac and vascular implant and graft, unspecified
CPT/HCPCS: J1644; J7050; P9016

== ENCOUNTER 2021-01-14 16:33 | Emergency (ER) | payer MEDICARE, BC ==
[2009-02-24 19:52] VITALS: BP 130/60
[~2021-01-14] VITALS: Ht 160 cm; Wt 85.0 kg
[2021-01-14 16:47] VITALS: TEMP 97.8
[2021-01-14 17:53] LABS: BASO % 0.5 % (0.0-2.0); EOS # 0.3 (0.0-0.7); EOS % 3.3 % (0-4.0); LYMPH % 12.1 % (20.0-51.0); MEAN CELL VOLUME 98 fl (80.0-100.0); MEAN CORPUSCULAR HGB CONC 32 g/dl (33.0-37.0); MEAN PLATELET VOLUME 9.9 fl (7.4-10.4); MONO # 0.7 (0.1-0.6); MONO % 8.7 % (1.7-9.3); PLATELET COUNT 216 K/mm3 (130-400); RED BLOOD COUNT 2.93 M/mm3 (4.10-5.30); REDCELL DISTRIBUTION WIDTH-CV 14.6 % (11.5-14.5)
[2021-01-14 17:57] LABS: HEMATOCRIT 28.6 % (37.0-47.0); HEMOGLOBIN 9.1 g/dl (12.5-16.0); MEAN CORPUSCULAR HEMOGLOBIN 31 pg (27.0-31.0)
[2021-01-14 18:01] LABS: CREATININE, serum 1.24 (0.52-1.25); TOTAL PROTEIN 6.9 gm/dL (6.4-8.2)
[2021-01-14 18:03] LABS: INR 1.2 (0.8-3.0)
[2021-01-14 18:10] LABS: ALBUMIN 3.8 gm/dL (3.5-5.0); BILIRUBIN,TOTAL 0.6 mg/dL (0.0-1.0); CALCIUM 9.3 mg/dL (8.4-10.2); POTASSIUM 4.2 mmol/L (3.4-5.0)
[2021-01-14] MEDS ORDERED: NORCO 325 MG-51 TAB PO (19:55)
[2021-01-14 20:00] VITALS: BP 108/64; PULSE 80
== END 2021-01-14 20:00 | disposition home or self-care (01) ==
LOC: COL.ER 16:33
PROVIDERS: Physician Assistant
DX: M79.652 Pain in left thigh (principal); I27.20 Pulmonary hypertension, unspecified; E11.9 Type 2 diabetes mellitus without complications; I25.2 Old myocardial infarction; E03.9 Hypothyroidism, unspecified; E78.5 Hyperlipidemia, unspecified; Z87.891 Personal history of nicotine dependence; Z90.710 Acquired absence of both cervix and uterus; Z90.49 Acquired absence of other specified parts of digestive tract; Z95.5 Presence of coronary angioplasty implant and graft; Z88.5 Allergy status to narcotic agent; Z91.040 Latex allergy status; Z88.8 Allergy status to other drugs, medicaments and biological substances; Z91.048 Other nonmedicinal substance allergy status; Z79.4 Long term (current) use of insulin; Z79.890 Hormone replacement therapy; Z79.82 Long term (current) use of aspirin
CPT/HCPCS: J1170; J1885